=== PATIENT | female | born 1975 | race African-American/Black ===

== ENCOUNTER 2017-07-02 16:01 | Emergency (ER) | payer OTHER ==
[2017-07-02 16:20] VITALS: BP 130/86; PULSE 101; TEMP 98.8; BMI 35.9
--- NOTE | 2017-07-02 16:22 | PDOC ---
Rapid Medical Evaluation Time Seen by Provider: 07/02/17 16:15 Medical Evaluation: Allergies Allergy/AdvReac Type Severity Reaction Status Date / Time No Known Allergies Allergy Verified 04/11/15 17:20 07/02/17 16:15 I have performed a brief in-person evaluation of this patient. The patient presents with a chief complaint of: cough, sore throat x2 weeks. left shoulder pain x1 week Pertinent physical exam findings: HEENT: oropharynx clear without erythema or exudate. NECK: No nuchal rigidity. PULM: lungs CTAB. I have ordered the following: UPT The patient will proceed to the ED for further evaluation. Discharge Disposition - Diagnosis Cough - Referrals - Patient Instructions - Post Discharge Activity
[2017-07-02] MEDS ORDERED: KETOROLAC TROMETHAMINE 60 MG/2 ML VIAL IM ONE (17:31)
--- NOTE | 2017-07-02 17:36 | PDOC ---
History of Present Illness - General Chief Complaint: Cold Symptoms Stated Complaint: NECK PAIN Time Seen by Provider: 07/02/17 16:15 History Source: Patient Exam Limitations: No Limitations - History of Present Illness Initial Comments: 07/02/17 17:31 Patient is here with complaints of left neck tension and pain 1 week. [place] on the train and nods off and thinks may have provoked her neck causing a mild torticollis the left side. Denies numbness or tingling to hand, denies fever, denies cough or shortness of breath. No associated injury that patient can remember. Pain Location: reports: neck Past History - Travel Traveled outside of the country in the last 30 days: No Close contact w/someone who was outside of country & ill: No - Past Medical History Allergies/Adverse Reactions: Allergies Allergy/AdvReac Type Severity Reaction Status Date / Time No Known Allergies Allergy Verified 07/02/17 16:20 Home Medications: Ambulatory Orders Cyclobenzaprine HCl [Flexeril 10 mg] 10 mg PO BID PRN #14 tablet 07/02/17 CVA: No COPD: No Diabetes: Yes (BORDERLINE) - Surgical History Cholecystectomy: Yes - Suicide/Smoking/Psychosocial Hx Smoking History: Never smoked Hx Alcohol Use: No Drug/Substance Use Hx: No Substance Use Type: None Trauma Specific PMHX - Complaint Specific PMHX Back Injury: No Neck Injury: No Review of Systems - Review of Systems Able to Perform ROS?: Yes Is the patient limited Amharic proficient: Yes Constitutional: Yes: Symptoms Reported, See HPI, Malaise. No: Chills, Fever HEENTM: Yes: Symptoms Reported, See HPI. No: Nose Congestion, Difficulty Swallowing Respiratory: Yes: See HPI. No: Symptoms reported, Cough Integumentary: Yes: See HPI. No: Symptoms Reported All Other Systems: Reviewed and Negative *Physical Exam - Vital Signs Last Vital Signs Temp Pulse Resp BP Pulse Ox 98.8 F 101 H 20 130/86 99 07/02/17 16:14 07/02/17 16:14 07/02/17 16:14 07/02/17 16:14 07/02/17 16:14 - Physical Exam General Appearance: Yes: Appropriately Dressed, Apparent Distress, Mild Distress HEENT: positive: CARI, Normal ENT Inspection, TMs Normal (objective but landmarks easily visualized) Neck: positive: Supple, Other (has tenderness along the upper trapezius muscles on the left side, reproducible pain at pressure points and insertion of distal aspect sternocleidomastoid. Range of motion in neck is limited secondary to the stiffness and tenderness. Full range of motion but reproduces pain in that with movement. A post clavicle or scapula, no C-spine tenderness.). negative: Lymphadenopathy (R), Lymphadenopathy (L) Respiratory/Chest: positive: Lungs Clear, Normal Breath Sounds Musculoskeletal: positive: Normal Inspection Extremity: positive: Normal Capillary Refill, Normal Inspection, Normal Range of Motion Integumentary: positive: Normal Color, Dry, Warm Neurologic: positive: cia agent II-XII NML intact, Fully Oriented, Alert, Normal Mood/ Affect, Normal Response, Motor Strength 10/18 Progress Note - Progress Note Progress Note: Cervical strain, will treat with NSAIDs and cyclobenzaprine *DC/Admit/Observation/Transfer Diagnosis at time of Disposition: Cervical strain, acute Qualifiers: Encounter type: initial encounter Qualified Code(s): S16.1XXA - Strain of muscle, fascia and tendon at neck level, initial encounter - Discharge Dispostion Disposition: HOME Condition at time of disposition: Stable Admit: No - Referrals - Patient Instructions Printed Discharge Instructions: DI for Cervical Muscle Strain Additional Instructions: Rest, no heavy lifting or exercise until pain is resolved Hot soaks to neck and low back as often as possible/hot showers or Jacuzzis No massage or therapy until spasm is gone Continue ibuprofen 2-200 mg tablets every 6 hours for the next 3 days then as needed for pain and swelling Cyclobenzaprine 1-10mg every 8 hours as needed for spasm If not significant improvement within 24 hours with medication and rest regime, followup with private physician for change in medications and /or therapy. - Post Discharge Activity Forms/Work/School Notes: Back to Work
[2017-07-02] MEDS ORDERED: KETOROLAC TROMETHAMINE 60 MG/2 ML VIAL ONE (17:49)
== END 2017-07-02 17:55 | disposition home or self-care (01) ==
LOC: JERFT 16:01
PROC: 3E0233Z Introduction of Anti-inflammatory into Muscle, Percutaneous Approach (ICD-10-PCS; principal; 2017-07-02)
DX: S16.1XXA Strain of muscle, fascia and tendon at neck level, initial encounter (principal); X50.1XXA Overexertion from prolonged static or awkward postures, initial encounter; Y93.84 Activity, sleeping; Y92.815 Train as the place of occurrence of the external cause; Y99.8 Other external cause status
CPT/HCPCS: 84703; 99281-25